=== PATIENT | female | born 2000 | race Caucasian/White ===

== ENCOUNTER 2022-09-02 06:07 | Inpatient (IN) ==
[2022-09-02] MEDS ORDERED: D5 LR + PITOCIN 10 UNITS/L 10 UNITS/1,000 ML BAG IV ONE (06:22)
[2022-09-02] MEDS ORDERED: BETADINE SOLN ONE (06:27)
[2022-09-02] MEDS ORDERED: D5 1/2 NS 1,000 ML 1,000 ML IV ONE (06:27)
--- NOTE | 2022-09-02 07:00 | DR.OB ---
OB Quick Note - Assessment/Plan Assessment/Plan: L&D 09/02/22 at 6:50am S-No complaint. O-Afebrile,VSS OAO=885 with good LTV, +accel, no decel. CTX=occasional, mild CVX=1cm/50%/-1/VTX AROM with good LTV, +accel, no decel. A-IUP at 39 1/7 weeks for induction anemia P-Begin pitocin induction Anticipate
[2022-09-02] MEDS ORDERED: REGLAN INJ 10 MG VIAL IVP PRN (07:08)
[2022-09-02] MEDS ORDERED: PITOCIN IVP ONE (07:08)
[2022-09-02] MEDS ORDERED: PHENERGAN INJ 25 MG IM PRN ×2 (07:08→19:11)
[2022-09-02] MEDS ORDERED: D5 LR + PITOCIN 10 UNITS/L 10 UNITS/1,000 ML BAG IV PRN (07:08)
[2022-09-02] MEDS ORDERED: STADOL INJ IVP PRN (07:13)
[2022-09-02 07:21] LABS: BILIRUBIN,URINE NEGATIVE (NEGATIVE); BLOOD/HEMOGLOBIN,URINE 1+ (NEGATIVE); GLUCOSE, URINE NEGATIVE (NEGATIVE); KETONES,URINE NEGATIVE (NEGATIVE); LEUKOCYTE ESTERASE ,URINE 1+ (NEGATIVE); NITRITES,URINE NEGATIVE (NEGATIVE); PROTEIN,URINE 1+ (NEGATIVE); UROBILINOGEN,URINE NORMAL (NORMAL)
[2022-09-02] MEDS: PITOCIN ONE ×2 (07:28→07:29)
[2022-09-02 07:38] LABS: BASOPHILS # (AUTO) 0.1 X10^3/uL (0.0-0.1); EOSINOPHILS # (AUTO) 0.1 x10^3/uL (0.0-0.2); EOSINOPHILS % (AUTO) 0.6 % (0.9-2.9); HEMATOCRIT 29.2 % (36.0-47.0); HEMOGLOBIN 9.7 g/dL (12.0-16.0); LYMPHOCYTES # (AUTO) 1.8 X10^3/uL (1.3-2.9); LYMPHOCYTES % (AUTO) 17.1 % (21.0-51.0); MEAN CORPUSCULAR HEMOGLOBIN 25.6 pg (27.0-34.0); MEAN CORPUSCULAR HGB CONC 33.2 g/dL (33.0-35.0); MEAN CORPUSCULAR VOLUME 77.1 fL (80.0-100.0); MEAN PLATELET VOLUME 8.1 fL (7.4-11.0); MONOCYTES # (AUTO) 0.5 x10^3/uL (0.3-0.8); MONOCYTES % (AUTO) 4.5 % (0.0-13.0); NEUTROPHILS # (AUTO) 8.1 x10^3/uL (2.2-4.8); NEUTROPHILS % (AUTO) 76.8 % (42.0-75.0); RED BLOOD COUNT 3.79 X10^6/uL (3.5-5.4); RED CELL DISTRIBUTION WIDTH 16.3 % (11.6-16.5); WHITE BLOOD COUNT 10.6 X10^3/uL (3.6-10.0)
[2022-09-02 07:39] LABS: APPEARANCE,URINE SLIGHTLY HAZY (CLEAR); BACTERIA,URINE TRACE /HPF (NEGATIVE); COLOR,URINE YELLOW (YELLOW); RBC,URINE 0-2 /HPF (0-3); SQUAMOUS EPITHELIAL CELL,UR FEW /HPF (NEGATIVE)
[2022-09-02 07:41] LABS: BLOOD UREA NITROGEN 8 mg/dL (7-18); CALCIUM 7.9 mg/dL (8.5-10.1); CARBON DIOXIDE 24.3 mmol/L (21-32); CHLORIDE 103 mmol/L (98-107); CREATININE 0.72 mg/dL (0.55-1.02); SODIUM 137 mmol/L (136-145); eGFR NON BLACK RACES > 60 (>60)
[2022-09-02] MEDS ORDERED: D5 1/2 NS 1,000 ML 1,000 ML IV SCH (08:00)
[2022-09-02] MEDS ORDERED: STADOL INJ ONE ×2 (11:14→12:52)
--- NOTE | 2022-09-02 12:05 | DR.OB ---
OB Quick Note - Assessment/Plan Assessment/Plan: L&D 09/02/22 at 11:55am Pitocin=16mu/min. S-No complaint except pain with CTX. O-Afebrile,VSS TCY=306 with good LTV, +accel, no decel. CTX=q 1 1/2 to 2 min., about 45-55mmHg CVX=3-4cm/50%/-1 A-IUP at 39 1/7 weeks for induction anemia P-Cont. pitocin induction Anticipate
[2022-09-02] MEDS ORDERED: LR 1,000 ML IV 1,000 ML IV ONE (12:30)
[2022-09-02] MEDS ORDERED: ZOFRAN INJ 4 MG VIAL ONE (12:52)
[2022-09-02] MEDS ORDERED: STADOL INJ IVP ONE (12:55)
[2022-09-02] MEDS ORDERED: ZOFRAN INJ 4 MG VIAL IVP ONE (12:55)
[2022-09-02] MEDS ORDERED: NAROPIN EPIDURAL 0.2% 100 ML ONE (12:56)
[2022-09-02] MEDS ORDERED: FENTANYL VIAL INJ 100 mcg ONE (12:56)
--- NOTE | 2022-09-02 17:09 | DR.OB ---
OB Quick Note - Assessment/Plan Assessment/Plan: L&D 09/02/22 at 5:05pm Pitocin=16mu/min. S-No complaint. s/p epidural. O-Afebrile,VSS HII=969 with good LTV, +accel, no decel. CTX=q 1 1/2 to 2 min., about 45-55mmHg CVX=7-8cm/75%/0 A-IUP at 39 1/7 weeks for induction anemia P-Cont. pitocin induction Anticipate
--- NOTE | 2022-09-02 19:11 | DR.OB ---
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 Head delivered over intact perineum. Nuchal cord x 1 reduced. Nose and mouth bulb suctioned. Compound presentation with left hand at head noted. Body delivered over intact perineum. Cord clamped x 2 and cut. handed to attendant. Cord sent for gases. Placenta delivered spontaneously / intact / 3 vessel cord. No CVX tears. A small midline second degree tear noted and repaired with 0-vicryl in usual fashion. Viable female delivered by , VTX/OA, wt=6'9" and 8/9, stable to NBN. Mother stable to RR. VPN=[id number].
[2022-09-02] MEDS: D5 1/2 NS 1,000 ML 1,000 ML with PITOCIN 20 UNITS IV SCH ×2 (19:15)
[2022-09-02] MEDS ORDERED: MILK OF MAGNESIA PO PRN (19:59)
[2022-09-02] MEDS ORDERED: DERMOPLAST PAIN RELIEF SPRAY TOP PRN (19:59)
[2022-09-02] MEDS ORDERED: ADACEL or BOOSTRIX TDaP VACCINE IM ONE (19:59)
[2022-09-02] MEDS ORDERED: AMBIEN PO PRN (19:59)
[2022-09-02] MEDS: MOTRIN TAB 800 MG PO PRN (21:55)
[2022-09-03] MEDS: D5 1/2 NS 1,000 ML 1,000 ML with PITOCIN 20 UNITS IV SCH ×4 (03:35→20:14)
[2022-09-03 05:17] LABS: HEMATOCRIT 26.3 % (36.0-47.0); HEMOGLOBIN 8.8 g/dL (12.0-16.0)
[2022-09-03] MEDS: FERROUS GLUCONATE PO SCH ×2 (08:10→18:14)
[2022-09-03] MEDS: MOTRIN TAB 800 MG PO PRN ×2 (08:10→18:14)
[2022-09-03] MEDS ORDERED: PRENATAL PLUS PO SCH (09:00)
[2022-09-03] MEDS ORDERED: ADACEL or BOOSTRIX TDaP VACCINE IM ONE (14:04)
[2022-09-03 20:17] VITALS: BP 108/59
== END 2022-09-03 20:20 | disposition home or self-care (01) | DRG 807 ==
LOC: LD 06:07 → MED/SURG 20:00
PROVIDERS: ADMIT Specialist; ATTEND Specialist
DX: D50.9 Iron deficiency anemia, unspecified; Z37.0 Single live birth; O99.810 Abnormal glucose complicating pregnancy; Z86.19 Personal history of other infectious and parasitic diseases; O99.02 Anemia complicating childbirth; Z3A.39 39 weeks gestation of pregnancy